=== PATIENT | female | born 1940 | race Caucasian/White ===

== ENCOUNTER → 2022-06-22 | Outpatient (CLI) | payer MEDICARE, SELFPAY ==
--- NOTE | 2022-06-22 12:22 | CT_ITS ---
STUDY: CT CHEST WITHOUT CONTRAST REASON FOR EXAM: Female, 82 years old. Lung Nodule follow up RADIATION DOSAGE (If Supplied By Facility): CTDIvol = ( 6.35 ) mGy, DLP = ( 219 ) mGycm TECHNIQUE: Transaxial imaging was performed without the administration of intravenous contrast material. Multiplanar coronal and sagittal images were reformatted. Individualized dose optimization techniques were used for this CT. COMPARISON: Comparison is made with prior outside examination dated 04/21/2022. FINDINGS: CHEST Heterogeneous appearance of both lobes of the thyroid gland suggestive of a goiter is change. Small bilateral benign-appearing axillary lymph nodes. Emphysematous changes. Scarring in the anterior aspect of the right lung apex. Reticular nodular changes in the anterior aspect of the left upper lobe with evidence of bronchiectasis along its anterior medial portion. Bronchiectasis and scarring in the lingular segment of the left upper lobe abutting the left major fissure. There is evidence of a 1.3 cm x 1.3 cm nodular density in the anterior medial aspect of the right middle lobe. There is evidence of bronchiectasis and volume loss with scarring in the medial aspect of the right middle lobe. Soft tissue density in the right lower lobe measuring 4.8 cm x 2 cm. There is evidence of a surrounding scarring at the right lung base. There is no demonstrated pleural abnormality. There are calcifications of the coronary arteries. Normal mediastinum. Normal hilar regions. Normal unenhanced pulmonary arteries. Normal aorta arch and descending thoracic aorta. There are multi-level degenerative changes of the thoracic spine. 1.2 cm cyst in the peripheral lateral aspect of the right lobe of the liver. Multiple gallstones. CT/Chest without Contrast IMPRESSION: Essentially stable examination except for soft tissue prominence in the posterior aspect of the right lower lobe. Electronically Signed: Harshad Jean Baptiste MD at 10:15 EST ,
== END | disposition home or self-care (01) ==
PROVIDERS: PCP Family Medicine; Visit Provider Internal Medicine Critical Care Medicine
DX: R91.1 Solitary pulmonary nodule (principal)
CPT/HCPCS: 71250

== ENCOUNTER → 2022-10-05 | Outpatient (CLI) | payer MEDICARE, SELFPAY ==
--- NOTE | 2022-10-05 12:45 | CT_ITS ---
STUDY: CT CHEST WITHOUT CONTRAST REASON FOR EXAM: Female, 82 years old. Lung Nodule RADIATION DOSAGE (If Supplied By Facility): CTDIvol = ( 6.06 ) mGy, DLP = ( 215.05 ) mGycm TECHNIQUE: Transaxial imaging was performed without the administration of intravenous contrast material. Multiplanar coronal and sagittal images were reformatted. Individualized dose optimization techniques were used for this CT. COMPARISON: Comparison is made with prior study dated June 22, 2022. 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 Hyperinflation. Emphysematous changes. Once again, there is scarring in the anterior aspect of the right lung apex. Stable reticular nodular changes are seen in the anterior aspect of the left upper lobe with evidence of bronchiectasis along its anterior medial portion. Bronchiectasis and scarring is also seen in the lingular segment of the left upper lobe abutting the left major fissure. Stable appearance of a 1.3 cm x 1.3 cm nodule in the anterior medial aspect of the right middle lobe. Stable scarring and bronchiectasis in the medial aspect of the right middle lobe. Stable soft tissue density in the right lower lobe measuring 4.8 cm x 2.1 cm. There is no demonstrated pleural abnormality. There are calcifications of the coronary arteries. Normal mediastinum. Normal hilar regions. Normal unenhanced pulmonary arteries. Normal aorta arch and descending thoracic aorta. There are multi-level degenerative changes of the thoracic spine. Small gallstones. Nonobstructive calculus in the upper focus except the left kidney. Small cyst in the posterior aspect of the upper pole of the left kidney. 1.3 cm cyst in the peripheral lateral aspect of the right lobe of the liver. CT/Chest without Contrast IMPRESSION: Stable examination. Electronically Signed: Harshad Jean Baptiste MD at 15:22 EDT ,
== END | disposition home or self-care (01) ==
LOC: CT 12:44
PROVIDERS: PCP Family Medicine; Referring Provider Internal Medicine Critical Care Medicine; Visit Provider Internal Medicine Critical Care Medicine
DX: R91.1 Solitary pulmonary nodule (principal)
CPT/HCPCS: 71250

== ENCOUNTER → 2022-12-16 | Outpatient (CLI) | payer MEDICARE, SELFPAY ==
--- NOTE | 2022-12-16 13:26 | VDLE_ITS ---
Reason For Study: SWELLING RIGHT LEFT CFV is compressible, spontaneous, phasic, CFV is compressible, spontaneous, phasic, competent and demonstrates normal competent, and demonstrates normal augmentation. augmentation. FV is compressible, spontaneous, phasic, FV is compressible, spontaneous, phasic, competent and demonstrates normal competent and demonstrates normal augmentation. augmentation. POP V is compressible, spontaneous, phasic, POP V is compressible, spontaneous, phasic, competent and demonstrates normal competent and demonstrates normal augmentation. augmentation. T/P Trunk is compressible. T/P Trunk is compressible. PTV is compressible. PTV is compressible. RT PerV is compressible. LT PerV is compressible. SFJ is competent and measures 0.35 x 0.36 cm. SFJ is competent and measures 0.45 x 0.42 cm. GSV proximal thigh measures 0.39 x 0.32 cm. GSV proximal thigh measures 0.40 x 0.36 cm. GSV at knee measures 0.22 x 0.23 cm. GSV at knee measures 0.30 x 0.30 cm. GSV above knee is INCOMPETENT for greater GSV above knee is INCOMPETENT for greater than 0.5 seconds. than 0.5 seconds. GSV below knee is competent. GSV below knee is competent. SSV proximal calf is competent and measures SSV proximal calf is competent and measures 0.18 x 0.18 cm. 0.17 x 0.16 cm. Procedure This is a venous duplex using B-mode, color flow and spectral Doppler. Exam performed in department. The study was technically difficult. L>R TENDERNESS OF TOUCH TO LEGS. The exam was diagnostic. VL/Venous Duplex US - Grabiel Extrem Interpretation Summary Deep veins of the bilateral lower extremities are patent and compressible segme ntally. There is no evidence of bilateral lower extremity deep vein thrombosis. The bilateral great saphenous veins appear patent and compressible segmentally. Positive for reflux in the right great saphenous vein Positive for reflux in the left great saphenous vein Ordering Physician: Alessandra Carreno Referring Physician: Carlitos Villatoro Performed By: Maile Eckert, RAFIA, RVT
== END | disposition home or self-care (01) ==
LOC: CVS 13:24
PROVIDERS: PCP Family Medicine; Referring Provider Physician Assistant; Visit Provider Physician Assistant
DX: M79.605 Pain in left leg (principal); M79.604 Pain in right leg
CPT/HCPCS: 93970

== ENCOUNTER → 2023-10-07 | Outpatient (CLI) | payer MEDICARE, SELFPAY ==
--- NOTE | 2023-10-07 14:30 | CT_ITS ---
STUDY: CT CHEST WITHOUT CONTRAST REASON FOR EXAM: Female, 83 years old. Lung Nodule RADIATION DOSAGE (If Supplied By Facility): CTDIvol = ( 6.04 ) mGy, DLP = ( 217.50 ) mGycm TECHNIQUE: Transaxial imaging was performed without the administration of intravenous contrast material. Multiplanar coronal and sagittal images were reformatted. Individualized dose optimization techniques were used for this CT. COMPARISON: Comparison is made with prior study dated October 05, 2022. FINDINGS: CHEST Heterogeneous appearance of the thyroid gland suggestive of goiter''s change. This is unchanged. Hyperinflation. Emphysematous changes and scarring in the upper lobes. Stable reticular nodular changes seen in the anterior aspect of the left upper lobe with evidence of bronchiectasis along its anterior medial aspect. Bronchiectasis and scarring is also seen in the liver some of the left upper lobe abutting the left major fissure. Stable appearance of the 1.3 cm x 1.3 cm nodule in the anterior medial aspect of the right middle lobe. Stable soft tissue density in the right lower lobe measuring 4.8 cm x 2.1 cm. There is no demonstrated pleural abnormality. There are calcifications of the coronary arteries. Normal mediastinum. Normal hilar regions. Normal unenhanced pulmonary arteries. Normal aorta arch and descending thoracic aorta. There are multi-level degenerative changes of the thoracic spine. Gallstones. CT/Chest without Contrast IMPRESSION: Stable examination. Electronically Signed: Harshad Jean Baptiste MD at 14:51 EDT ,
== END | disposition home or self-care (01) ==
PROVIDERS: PCP Family Medicine; Referring Provider Internal Medicine Critical Care Medicine; Visit Provider Internal Medicine Critical Care Medicine
DX: R91.1 Solitary pulmonary nodule (principal)
CPT/HCPCS: 71250

== ENCOUNTER → 2024-03-14 | Outpatient (CLI) | payer MEDICARE, SELFPAY ==
[2024-03-14 17:45] LABS: Absolute Lymphocyte Count 1.03 X10^3/uL (0.83-4.51); Absolute Neutrophil Count 2.4 X10^3/uL (2.0-7.7); Basophil# 0.04 X10^3/uL; Eosinophil# 0.03 X10^3/uL; Eosinophils% 0.7 % (0-5); Hematocrit 41.3 % (37-47); Hemoglobin 13.4 g/dL (12.0-15.0); Lymphocyte # 1.03 X10^3/ul (0.83-4.51); Lymphocyte % 25.5 % (19-41); Mean Corp Hgb Conc 32.4 g/dL (32-36); Mean Corpuscular Hgb 29.1 pg (27.0-32.0); Mean Corpuscular Volume 89.6 fL (81-99); Mean Platelet Vol. 11.2 fl (6.2-12.0); Monocyte# 0.53 X10^3/uL; Monocyte% 13.1 % (0-10); NRBC Flagged by Analyzer 0 % (0-5); Neutrophil % 59.5 % (47-70); Platelet Count 264 K/mm3 (150-450); RBC Distribution Width CV 14.3 % (11.6-14.6); RBC Distribution Width SD 46.9 fl (35.1-43.9); Red Blood Count 4.61 M/mm3 (4.2-5.4)
[2024-03-14 18:12] LABS: ALB/GLOB Ratio 0.7 RATIO (0.9-2.4); AST(SGOT) 39 U/L (15-37); Alanine Aminotransfer ALT/SGPT 64 U/L (13-56); Albumin, Serum 3.9 g/dL (3.2-5.0); Alkaline Phosphatase 155 U/L (45-117); Anion Gap 4 (5-15); BUN 18 mg/dL (7-18); BUN/Creat Ratio 28.6 RATIO (10-20); Calcium,Total 9.7 mg/dL (8.5-10.1); Chloride 108 mmol/L (98-107); Creatinine, Serum 0.63 mg/dL (0.55-1.02); EST Glomerular Filtration Rate 96 mL/min (>60); Est Glom Filt Rate - Afr Amer 117 mL/min (>60); Globulin 5.5 g/dL (2.2-4.2); Glucose 85 mg/dL (74-106); Potassium 4.4 mmol/L (3.5-5.1); Protein, Total 9.4 g/dL (6.4-8.2); Sodium Level 139 mmol/L (136-145)
[2024-03-14 18:37] LABS: Hepatitis B Surface Antibody Non-Reactive; Hepatitis B Surface Antigen Non-Reactive (Nonreactive); Hepatitis C Antibody Non-Reactive (Nonreactive)
[2024-03-14 22:35] LABS: Color, Urine Yellow (Yellow); Glucose, Dipstick Normal (Normal); Ketone-Dipstick Negative (Negative); Leukocyte Esterase-Dipstick Negative /ul (Negative); Nitrite-Dipstick Negative (Negative); Occult Blood-Urine Negative /ul (Negative); Protein-Dipstick Negative (Negative); Urine Bilirubin Dipstick Negative (Negative); Urine Clarity Clear (Clear); Urine Urobilinogen Normal (Normal)
[2024-03-14 22:44] LABS: Protein, Urine (Random) 25.1 mg/dL (<11.9); Protein:Creat Ratio 186 mg/g CRE (0-200)
== END | disposition home or self-care (01) ==
LOC: MTLAB 14:51
PROVIDERS: PCP Family Medicine; Referring Provider Internal Medicine Rheumatology; Visit Provider Internal Medicine Rheumatology
DX: R76.8 Other specified abnormal immunological findings in serum (principal); M05.79 Rheumatoid arthritis with rheumatoid factor of multiple sites without organ or systems involvement
CPT/HCPCS: 36415; 80053; 81002; 82570; 84156; 85025; 86706; 86803; 87340

== ENCOUNTER → 2024-03-16 | Outpatient (CLI) | payer MEDICARE, SELFPAY ==
[2024-03-16 13:38] LABS: EXAGEN MAILED SPECIMEN
== END | disposition home or self-care (01) ==
LOC: MTLAB 12:30
PROVIDERS: PCP Family Medicine; Referring Provider Internal Medicine Rheumatology; Visit Provider Internal Medicine Rheumatology
DX: R76.8 Other specified abnormal immunological findings in serum (principal)